=== PATIENT | male | born 1980 | race African-American/Black ===

== ENCOUNTER 2017-12-20 12:46 | Inpatient (IN) | payer OTHER ==
[2017-12-20 13:04] VITALS: BMI 23.4
--- NOTE | 2017-12-20 15:09 | HP ---
CIWA Score - CIWA Score Nausea/Vomitin-Mild Nausea/No Vomiting Muscle Tremors: 4-Moderate,w/Arms Extend Anxiety: 4-Mod. Anxious/Guarded Agitation: 4-Moderately Restless Paroxysmal Sweats: 1-Minimal Palms Moist Orientation: 0-Oriented Tacttile Disturbances: 1-Very Mild Itch/Numbness Auditory Disturbances: 0-None Visual Disturbances: 0-None Headache: 1-Very Mild CIWA-Ar Total Score: 16 Admission ROS S - HPI Chief Complaint: alcohol withdrawal sx longest sobriety 4 1/2 years Allergies/Adverse Reactions: Allergies Allergy/AdvReac Type Severity Reaction Status Date / Time penicillinase Allergy Severe Swelling Verified 12/20/17 13:51 shrimp Allergy Severe Swelling Verified 12/20/17 13:51 History of Present Illness: 37 years old male with long history of alcohol nicotine dependence has asthma depression is admitted to detox Exam Limitations: No Limitations - Ebola screening Have you traveled outside of the country in the last 21 days: No Have you had contact with anyone from an Ebola affected area: No Have you been sick,other than usual withdrawal symptoms: No Do you have a fever: No - Review of Systems Constitutional: Loss of Appetite, Changes in sleep, Unintentional Wgt. Loss, Unexplained wgt Loss EENT: reports: No Symptoms Reported Respiratory: reports: SOB with Exertion, Productive cough Cardiac: reports: No Symptoms Reported GI: reports: Nausea, Poor Appetite, Poor Fluid Intake, Abdominal cramping : reports: No Symptoms Reported Musculoskeletal: reports: No Symptoms Reported Integumentary: reports: No Symptoms Reported Neuro: reports: Tremors Endocrine: reports: No Symptoms Reported Hematology: reports: No Symptoms Reported Psychiatric: reports: Judgement Intact, Orientated x3, Anxious, Depressed Other Systems: Reviewed and Negative Patient History - Patient Medical History Hx Anemia: No Hx Asthma: Yes (ON ALBUTEROL AND SYMBICORT) Hx Chronic Obstructive Pulmonary Disease (COPD): No Hx Cancer: No Hx Cardiac Disorders: No Hx Congestive Heart Failure: No Hx Hypertension: No Hx Hypercholesterolemia: No Hx Pacemaker: No HX Cerebrovascular Accident: No Hx Seizures: No Hx Dementia: No Hx Diabetes: No (HX OF TYPE 2 DM D/C OF METFORMIN IN 2017 AFTER 20 LBS WEIGHT LOSS) Hx Gastrointestinal Disorders: No Hx Liver Disease: No Hx Genitourinary Disorders: No Hx Sexually Transmitted Disorders: No Hx Renal Disease (ESRD): No Hx Thyroid Disease: No Hx Human Immunodeficiency Virus (HIV): No (LAST 09/03/15 NEGATIVE) Hx Hepatitis C: No Hx Depression: Yes (NO MEDICATON) Hx Suicide Attempt: No Hx Bipolar Disorder: No Hx Schizophrenia: No - Patient Surgical History Past Surgical History: Yes Hx Neurologic Surgery: No Hx Cataract Extraction: No Hx Cardiac Surgery: No Hx Lung Surgery: No Hx Breast Surgery: No Hx Breast Biopsy: No Hx Abdominal Surgery: No Hx Appendectomy: No Hx Cholecystectomy: No Hx Genitourinary Surgery: No Hx Orthopedic Surgery: Yes (R HIP REPLACEMENT IN 08/20, L HIP REPLACEMENT 2016) Anesthesia Reaction: No - PPD History Previous Implant?: Yes Documented Results: Negative w/proof Implanted On Prior [facility] Admission?: Yes Date: 09/30/15 Results: NEG PPD to be Administered?: Yes - Smoking Cessation Smoking history: Current every day smoker Have you smoked in the past 12 months: Yes Aproximately how many cigarettes per day: 10 Cigars Per Day: 0 Hx Chewing Tobacco Use: No Initiated information on smoking cessation: Yes 'Breaking Loose' booklet given: 12/20/17 - Substance & Tx. History Hx Alcohol Use: Yes Hx Substance Use: No Substance Use Type: Alcohol Hx Substance Use Treatment: Yes (2015 [facility]) - Substances Abused Alcohol Route: Oral Frequency: Daily Amount used: (3) 24 ounces beer ,1 pint on weekends erika Age of first use: 21 Date of Last Use: 12/19/17 Family Disease History - Family Disease History Family Disease History: Diabetes: Sister, Respiratory: Sister, Other: Father ( ALCOHOL,), Mother (ALCOHOL), Brother (DSA), Sister Admission Physical Exam [facility] - Vital Signs Vital Signs: Vital Signs - 24 hr 12/20/17 12/20/17 13:02 14:40 Temperature 98 F 98 F Pulse Rate 96 H 96 H Respiratory 20 20 Rate Blood Pressure 139/74 139/74 - Physical General Appearance: Yes: Nourished, Appropriately Dressed, Mild Distress, Alcohol on Breath, Tremorous, Irritable, Sweating, Anxious HEENTM: Yes: Hearing grossly Normal, Normocephalic, Normal Voice Respiratory: Yes: Chest Non-Tender, No Respiratory Distress, No Accessory Muscle Use, Wheezing, Expiration Neck: Yes: Supple, Trachea in good position Breast: Yes: Breasts Symetrical, No Discharge Cardiology: Yes: Regular Rhythm, S1, S2, Tachycardia Abdominal: Yes: Normal Bowel Sounds, Non Tender, Flat, Soft Genitourinary: Yes: Within Normal Limits Back: Yes: Normal Inspection Musculoskeletal: Yes: full range of Motion, Gait Steady Extremities: Yes: Normal Inspection, Normal Range of Motion, Tremors Neurological: Yes: Fully Oriented, Alert, Motor Strength 5/5, Normal Response, Depressed Affect Integumentary: Yes: Warm Lymphatic: Yes: Within Normal Limits - Diagnostic (1) Alcohol dependence with uncomplicated withdrawal Current Visit: Yes Status: Acute (2) Depression Current Visit: Yes Status: Suspected Qualifiers: Depression Type: dysthymia Qualified Code(s): F34.1 - Dysthymic disorder (3) Asthma Current Visit: Yes Status: Chronic Qualifiers: Asthma severity: mild Asthma persistence: intermittent Asthma complication type: with status asthmaticus Qualified Code(s): J45.22 - Mild intermittent asthma with status asthmaticus (4) History of total right hip replacement Current Visit: Yes Status: Chronic Comment: right hip 2016 left hip 2017 (5) Nicotine dependence Current Visit: Yes Status: Acute Qualifiers: Nicotine product type: cigarettes Substance use status: in withdrawal Qualified Code(s): F17.213 - Nicotine dependence, cigarettes, with withdrawal Cleared for Admission [facility] - Detox or Rehab [facility] Level of Care: Medically Managed Detox Regimen/Protocol: Librium [facility] Breath Alcohol Content Breath Alcohol Content: 0.018 Urine Drug Screen - Results Drug Screen Negative: Yes
[2017-12-20] MEDS ORDERED: guaiFENesin/D-METHORPHAN HB 10 ML UNIT-DOSE CUPS PO PRN (15:10)
[2017-12-20] MEDS ORDERED: P-EPHED 60MG/TRIPROLIDI 2.5MG TABLET PO PRN (15:10)
[2017-12-20] MEDS ORDERED: LOPERAMIDE HCL 2 MG CAPSULE PO PRN (15:10)
[2017-12-20] MEDS ORDERED: MAGNESIUM HYDROX 2400MG/30ML ORAL SUSPENSION 30 ML CUP PO PRN (15:10)
[2017-12-20] MEDS ORDERED: MAGNESIUM CITRATE 300 ML BOTTLE PO PRN (15:10)
[2017-12-20] MEDS ORDERED: NICOTINE POLACRILEX 2 MG GUM BUC PRN (15:10)
[2017-12-20] MEDS ORDERED: MAG HYDROX/AL HYDROX/SIMETH 30 ML UNIT-DOSE CUP PO PRN (15:10)
[2017-12-20] MEDS ORDERED: MENTHOL/PHENOL 1 EACH UD MM PRN (15:10)
[2017-12-20] MEDS ORDERED: ACETAMINOPHEN 325 MG TABLET (FP) PO PRN (15:10)
[2017-12-20] MEDS ORDERED: chlordiazePOXIDE HCL 25 MG CAPSULE PO PRN (15:10)
[2017-12-20] MEDS ORDERED: IBUPROFEN 400 MG TABLET (FP) PO PRN (15:10)
[2017-12-20] MEDS ORDERED: predniSONE 20 MG TABLET (UD) PO ONE (15:40)
[2017-12-20] MEDS: chlordiazePOXIDE HCL 25 MG CAPSULE PO SCH ×2 (17:26→22:34)
[2017-12-20] MEDS: NICOTINE 14 MG/24 HOURS TOPICAL PATCH TD SCH (17:28)
[2017-12-20] MEDS: ALBUTEROL SO4 8 GM HFA INHALER IH PRN (17:42)
[2017-12-20] MEDS ORDERED: MELATONIN 5 MG TABLETS PO PRN (22:00)
[2017-12-20] MEDS: THIAMINE HCL 100 MG TABLET (FP) PO SCH (22:34)
[2017-12-20] MEDS: ALBUTEROL SO4 0.083% IH SOL 2.5 MG/3 ML VIAL.NEB. NEB PRN (23:14)
[2017-12-21] MEDS: chlordiazePOXIDE HCL 25 MG CAPSULE PO SCH ×4 (05:10→22:23)
[2017-12-21] MEDS: ALBUTEROL SO4 8 GM HFA INHALER IH PRN ×3 (05:12→22:24)
[2017-12-21 09:54] LABS: HEMATOCRIT 47.5 % (35.4-49); HEMOGLOBIN 15.9 GM/dL (11.7-16.9); MCH 30.5 pg (25.7-33.7); MCHC 33.5 g/dl (32.0-35.9); MEAN CELL VOLUME 91.3 fl (80-96); MEAN PLT VOLUME 10.3 fl (7.5-11.1); PLATELET COUNT 318 K/MM3 (134-434); RDW 13.9 % (11.9-15.9); WHITE BLOOD COUNT 10.6 K/mm3 (4.0-10.0)
[2017-12-21] MEDS ORDERED: predniSONE 10 MG TABLET (UD) PO ONE (10:00)
[2017-12-21] MEDS: PRENATAL VITAMINS W/ FOLIC ACID TABLET (FP) PO SCH (10:03)
[2017-12-21] MEDS: NICOTINE 14 MG/24 HOURS TOPICAL PATCH TD SCH (10:04)
[2017-12-21 10:52] LABS: ALBUMIN 4.4 g/dl (3.4-5.0); ANION GAP 9 (8-16); BLOOD UREA NITROGEN 10 mg/dL (7-18); CALCIUM 10.1 mg/dL (8.5-10.1); CHLORIDE 106 mmol/L (98-107); CO2 22 mmol/L (21-32); GLUCOSE,RANDOM 98 mg/dL (74-106); SGOT/AST 28 U/L (15-37); SGPT/ALT 34 U/L (12-78); SODIUM 137 mmol/L (136-145)
[2017-12-21 10:54] LABS: ALK PHOS 104 U/L (45-117); BILIRUBIN,TOTAL 0.4 mg/dL (0.2-1.0); TOT PROT 8.4 g/dl (6.4-8.2)
--- NOTE | 2017-12-21 11:31 | EKG ---
Test Reason : Blood Pressure : / mmHG Vent. Rate : 088 BPM Atrial Rate : 088 BPM P-R Int : 152 ms QRS Dur : 080 ms QT Int : 358 ms P-R-T Axes : 075 083 065 degrees QTc Int : 433 ms NORMAL SINUS RHYTHM NORMAL ECG Confirmed by MD JOJO, YEIMI ([id number]) on 12/21/2017 11:31:08 AM Referred By: Confirmed By:YEIMI URIBE MD
--- NOTE | 2017-12-21 12:06 | PN ---
[facility] CIWA - CIWA Score Nausea/Vomitin-Mild Nausea/No Vomiting Muscle Tremors: 4-Moderate,w/Arms Extend Anxiety: 4-Mod. Anxious/Guarded Agitation: 4-Moderately Restless Paroxysmal Sweats: 1-Minimal Palms Moist Orientation: 0-Oriented Tacttile Disturbances: 0-None Auditory Disturbances: 0-None Visual Disturbances: 0-None Headache: 0-None Present CIWA-Ar Total Score: 14 S Progress Note (SOAP) Subjective: SWEAT TREMOR RESTLESSNESS IRRITABLE Objective: 12/21/17 12:05 Vital Signs Temperature 97.7 F 12/21/17 09:14 Pulse Rate 80 12/21/17 09:14 Respiratory Rate 18 12/21/17 09:14 Blood Pressure 120/80 12/21/17 09:14 O2 Sat by Pulse Oximetry (%) Laboratory Last Values WBC 10.6 K/mm3 (4.0-10.0) H 12/21/17 06:00 RBC 5.20 M/mm3 (4.00-5.60) 12/21/17 06:00 Hgb 15.9 GM/dL (11.7-16.9) 12/21/17 06:00 Hct 47.5 % (35.4-49) 12/21/17 06:00 MCV 91.3 fl (80-96) 12/21/17 06:00 MCH 30.5 pg (25.7-33.7) 12/21/17 06:00 MCHC 33.5 g/dl (32.0-35.9) 12/21/17 06:00 RDW 13.9 % (11.9-15.9) 12/21/17 06:00 Plt Count 318 K/MM3 (134-434) D 12/21/17 06:00 MPV 10.3 fl (7.5-11.1) 12/21/17 06:00 Sodium 137 mmol/L (136-145) 12/21/17 06:00 Potassium 5.0 mmol/L (3.5-5.1) D 12/21/17 06:00 Chloride 106 mmol/L (98-107) 12/21/17 06:00 Carbon Dioxide 22 mmol/L (21-32) D 12/21/17 06:00 Anion Gap 9 (8-16) 12/21/17 06:00 BUN 10 mg/dL (7-18) 12/21/17 06:00 Creatinine 1.0 mg/dL (0.7-1.3) 12/21/17 06:00 Creat Clearance w eGFR > 60 (>60) 12/21/17 06:00 POC Glucometer 107 UNITS (80-120) 12/20/17 14:45 Random Glucose 98 mg/dL (74-106) 12/21/17 06:00 Calcium 10.1 mg/dL (8.5-10.1) 12/21/17 06:00 Total Bilirubin 0.4 mg/dL (0.2-1.0) 12/21/17 06:00 AST 28 U/L (15-37) D 12/21/17 06:00 ALT 34 U/L (12-78) 12/21/17 06:00 Alkaline Phosphatase 104 U/L (45-117) 12/21/17 06:00 Total Protein 8.4 g/dl (6.4-8.2) H 12/21/17 06:00 Albumin 4.4 g/dl (3.4-5.0) 12/21/17 06:00 LAB NOTED Assessment: 12/21/17 12:06 WITHDRAWAL SX Plan: CONTINUE DETOX
[2017-12-21] MEDS ORDERED: hydrOXYzine PAMOATE 50 MG CAPSULE (FP) PO PRN (13:53)
--- NOTE | 2017-12-21 13:54 | CONSULT ---
[facility] Psychiatric Consult - Data Date of interview: 12/21/17 Admission source: [facility] Identifying data: Patient is a 37 year old male, father of five, unemployed, homless, and pending SSI. This is one of multiple admissions for patient. Pt. admitted to for alcohol dependence. Substance Abuse History: Smoking Cessation. Smoking history: Current every day smoker. Have you smoked in the past 12 months: Yes. Aproximately how many cigarettes per day: 10. Cigars Per Day: 0. Hx Chewing Tobacco Use: No. Initiated information on smoking cessation: Yes. 'Breaking Loose' booklet given : 12/20/17. - Substance & Tx. History. Hx Alcohol Use: Yes. Hx Substance Use : No. Substance Use Type: Alcohol. Hx Substance Use Treatment: Yes (2015 [facility]). - Substances Abused. Alcohol. Route: Oral. Frequency: Daily. Amount used: (3) 24 ounces beer ,1 pint on weekends erika. Age of first use: 21. Date of Last Use: 12/19/17 Medical History: Asthma, Type II diabetes, (R HIP REPLACEMENT IN 08/20, L HIP REPLACEMENT 2017 Psychiatric History: Patient denies h/o psychiatric hospitalization, outpatient care and suicide attempt. Patient reports poor sleep and h/o learning disability. Physical/Sexual Abuse/Trauma History: Denies. Mental Status Exam - Mental Status Exam Alert and Oriented to: Time, Place, Person Cognitive Function: Good Patient Appearance: Well Groomed Mood: Hopeful, Euthymic Affect: Mood Congruent Patient Behavior: Appropriate, Cooperative Speech Pattern: Appropriate Voice Loudness: Normal Thought Process: Intact, Goal Oriented Thought Disorder: Not Present Hallucinations: Denies Suicidal Ideation: Denies Homicidal Ideation: Denies Insight/Judgement: Poor Sleep: Poorly Appetite: Fair Muscle strength/Tone: Normal Gait/Station: Normal Psychiatric Findings - Problem List ([place] 1, 2,3) (1) Alcohol dependence with uncomplicated withdrawal Current Visit: Yes Status: Acute (2) Nicotine dependence Current Visit: Yes Status: Acute Qualifiers: Nicotine product type: cigarettes Substance use status: in withdrawal Qualified Code(s): F17.213 - Nicotine dependence, cigarettes, with withdrawal (3) History of total right hip replacement Current Visit: Yes Status: Chronic Comment: right hip 2016 left hip 2016 (4) Alcohol-induced mood disorder Current Visit: Yes Status: Acute (5) Substance-induced sleep disorder Current Visit: Yes Status: Acute - Initial Treatment Plan Initial Treatment Plan: Psychoeducation provided. Detoxification in progress. Will increase Melatonin to 8mg and add vistaril 50mg q6h for anxiety. Benefits and side effects discussed. Verbal consent given.
[2017-12-21] MEDS ORDERED: MELATONIN 3 MG, MELATONIN 5 MG PO PRN (13:57)
[2017-12-21] MEDS ORDERED: MELATONIN 5 MG TABLETS PO PRN (22:00)
[2017-12-21] MEDS: THIAMINE HCL 100 MG TABLET (FP) PO SCH (22:23)
[2017-12-22] MEDS: chlordiazePOXIDE HCL 25 MG CAPSULE PO SCH ×2 (05:12→10:30)
[2017-12-22] MEDS: ALBUTEROL SO4 8 GM HFA INHALER IH PRN ×3 (09:02→20:03)
[2017-12-22] MEDS: ALBUTEROL SO4 0.083% IH SOL 2.5 MG/3 ML VIAL.NEB. NEB PRN (09:03)
[2017-12-22] MEDS ORDERED: predniSONE 20 MG TABLET (UD) PO ONE (10:00)
[2017-12-22] MEDS: PRENATAL VITAMINS W/ FOLIC ACID TABLET (FP) PO SCH (10:30)
[2017-12-22] MEDS: NICOTINE 14 MG/24 HOURS TOPICAL PATCH TD SCH (10:30)
--- NOTE | 2017-12-22 10:55 | PN ---
S CIWA - CIWA Score Nausea/Vomitin-Mild Nausea/No Vomiting Muscle Tremors: 4-Moderate,w/Arms Extend Anxiety: 3 Agitation: 3 Paroxysmal Sweats: 1-Minimal Palms Moist Orientation: 0-Oriented Tacttile Disturbances: 0-None Auditory Disturbances: 0-None Visual Disturbances: 0-None Headache: 0-None Present CIWA-Ar Total Score: 12 [facility] Progress Note (SOAP) Subjective: sweat tremor anxiety restlessness wheezing Objective: 12/22/17 11:00 Vital Signs Temperature 97.7 F 12/22/17 09:15 Pulse Rate 68 12/22/17 09:15 Respiratory Rate 18 12/22/17 09:15 Blood Pressure 114/65 12/22/17 09:15 O2 Sat by Pulse Oximetry (%) Laboratory Last Values WBC 10.6 K/mm3 (4.0-10.0) H 12/21/17 06:00 RBC 5.20 M/mm3 (4.00-5.60) 12/21/17 06:00 Hgb 15.9 GM/dL (11.7-16.9) 12/21/17 06:00 Hct 47.5 % (35.4-49) 12/21/17 06:00 MCV 91.3 fl (80-96) 12/21/17 06:00 MCH 30.5 pg (25.7-33.7) 12/21/17 06:00 MCHC 33.5 g/dl (32.0-35.9) 12/21/17 06:00 RDW 13.9 % (11.9-15.9) 12/21/17 06:00 Plt Count 318 K/MM3 (134-434) D 12/21/17 06:00 MPV 10.3 fl (7.5-11.1) 12/21/17 06:00 Sodium 137 mmol/L (136-145) 12/21/17 06:00 Potassium 5.0 mmol/L (3.5-5.1) D 12/21/17 06:00 Chloride 106 mmol/L (98-107) 12/21/17 06:00 Carbon Dioxide 22 mmol/L (21-32) D 12/21/17 06:00 Anion Gap 9 (8-16) 12/21/17 06:00 BUN 10 mg/dL (7-18) 12/21/17 06:00 Creatinine 1.0 mg/dL (0.7-1.3) 12/21/17 06:00 Creat Clearance w eGFR > 60 (>60) 12/21/17 06:00 POC Glucometer 107 UNITS (80-120) 12/22/17 05:11 Random Glucose 98 mg/dL (74-106) 12/21/17 06:00 Calcium 10.1 mg/dL (8.5-10.1) 12/21/17 06:00 Total Bilirubin 0.4 mg/dL (0.2-1.0) 12/21/17 06:00 AST 28 U/L (15-37) D 12/21/17 06:00 ALT 34 U/L (12-78) 12/21/17 06:00 Alkaline Phosphatase 104 U/L (45-117) 12/21/17 06:00 Total Protein 8.4 g/dl (6.4-8.2) H 12/21/17 06:00 Albumin 4.4 g/dl (3.4-5.0) 12/21/17 06:00 RPR Titer Nonreactive (NONREACTIVE) 12/21/17 06:00 lab noted Assessment: 12/22/17 11:01 withdrawal sx asthma Plan: continue detox
[2017-12-22 14:33] LABS: URINE APPEARANCE CLEAR; URINE BILIRUBIN NEGATIVE (<2.0 mg/dL); URINE COLOR YELLOW; URINE GLUCOSE (UA) NEGATIVE (NEGATIVE); URINE KETONE NEGATIVE (NEGATIVE); URINE LEUK ESTERASE NEGATIVE (NEGATIVE); URINE NITRITE NEGATIVE (NEGATIVE); URINE PROTEIN NEGATIVE (NEGATIVE); URINE UROBILINOGEN NEGATIVE mg/dL (0.2-1.0)
[2017-12-22 15:00] LABS: EPI CELLS RARE /HPF (FEW); URINE MUCUS RARE
[2017-12-22] MEDS: chlordiazePOXIDE 5 MG CAPSULE PO SCH ×2 (17:31→22:13)
[2017-12-22] MEDS: THIAMINE HCL 100 MG TABLET (FP) PO SCH (22:13)
[2017-12-23] MEDS: chlordiazePOXIDE 5 MG CAPSULE PO SCH ×2 (05:52→10:06)
[2017-12-23] MEDS: ALBUTEROL SO4 8 GM HFA INHALER IH PRN ×2 (05:54→10:10)
--- NOTE | 2017-12-23 08:47 | PN ---
[facility] Progress Note (SOAP) Subjective: FEELING BETTER NO TREMOR LESS SWEAT DENIES GI DISTRESS SOCIAL WITH PEERS IN DAY ROOM DISCUSS AFTERCARE Objective: 12/23/17 08:46 Vital Signs Temperature 97 F L 12/23/17 07:54 Pulse Rate 66 12/23/17 07:54 Respiratory Rate 18 12/23/17 07:54 Blood Pressure 128/95 12/23/17 07:54 O2 Sat by Pulse Oximetry (%) Laboratory Last Values WBC 10.6 K/mm3 (4.0-10.0) H 12/21/17 06:00 RBC 5.20 M/mm3 (4.00-5.60) 12/21/17 06:00 Hgb 15.9 GM/dL (11.7-16.9) 12/21/17 06:00 Hct 47.5 % (35.4-49) 12/21/17 06:00 MCV 91.3 fl (80-96) 12/21/17 06:00 MCH 30.5 pg (25.7-33.7) 12/21/17 06:00 MCHC 33.5 g/dl (32.0-35.9) 12/21/17 06:00 RDW 13.9 % (11.9-15.9) 12/21/17 06:00 Plt Count 318 K/MM3 (134-434) D 12/21/17 06:00 MPV 10.3 fl (7.5-11.1) 12/21/17 06:00 Sodium 137 mmol/L (136-145) 12/21/17 06:00 Potassium 5.0 mmol/L (3.5-5.1) D 12/21/17 06:00 Chloride 106 mmol/L (98-107) 12/21/17 06:00 Carbon Dioxide 22 mmol/L (21-32) D 12/21/17 06:00 Anion Gap 9 (8-16) 12/21/17 06:00 BUN 10 mg/dL (7-18) 12/21/17 06:00 Creatinine 1.0 mg/dL (0.7-1.3) 12/21/17 06:00 Creat Clearance w eGFR > 60 (>60) 12/21/17 06:00 POC Glucometer 107 UNITS (80-120) 12/22/17 05:11 Random Glucose 98 mg/dL (74-106) 12/21/17 06:00 Calcium 10.1 mg/dL (8.5-10.1) 12/21/17 06:00 Total Bilirubin 0.4 mg/dL (0.2-1.0) 12/21/17 06:00 AST 28 U/L (15-37) D 12/21/17 06:00 ALT 34 U/L (12-78) 12/21/17 06:00 Alkaline Phosphatase 104 U/L (45-117) 12/21/17 06:00 Total Protein 8.4 g/dl (6.4-8.2) H 12/21/17 06:00 Albumin 4.4 g/dl (3.4-5.0) 12/21/17 06:00 Urine Color Yellow 12/22/17 11:00 Urine Appearance Clear 12/22/17 11:00 Urine pH 5.0 (5.0-8.0) 12/22/17 11:00 Ur Specific [place] 1.025 (1.001-1.035) 12/22/17 11:00 Urine Protein Negative (NEGATIVE) 12/22/17 11:00 Urine Glucose (UA) Negative (NEGATIVE) 12/22/17 11:00 Urine Ketones Negative (NEGATIVE) 12/22/17 11:00 Urine Blood 1+ (NEGATIVE) H 12/22/17 11:00 Urine Nitrite Negative (NEGATIVE) 12/22/17 11:00 Urine Bilirubin Negative (<2.0 mg/dL) 12/22/17 11:00 Urine Urobilinogen Negative mg/dL (0.2-1.0) 12/22/17 11:00 Ur Leukocyte Esterase Negative (NEGATIVE) 12/22/17 11:00 Urine WBC (Auto) 2 /hpf (3-5) 12/22/17 11:00 Urine RBC (Auto) 5 /hpf (0-3) 12/22/17 11:00 Ur Epithelial Cells Rare /HPF (FEW) 12/22/17 11:00 Urine Mucus Rare 12/22/17 11:00 RPR Titer Nonreactive (NONREACTIVE) 12/21/17 06:00 LAB NOTED Assessment: 12/23/17 08:46 MILD WITHDRAWAL SX Plan: MEDICALLY SUPERVISED DETOX
[2017-12-23] MEDS ORDERED: predniSONE 10 MG TABLET (UD) PO ONE (10:00)
[2017-12-23] MEDS: NICOTINE 14 MG/24 HOURS TOPICAL PATCH TD SCH (10:06)
[2017-12-23] MEDS: PRENATAL VITAMINS W/ FOLIC ACID TABLET (FP) PO SCH (10:06)
[2017-12-23 10:17] VITALS: BP 132/77; PULSE 63; TEMP 97.2
--- NOTE | 2017-12-23 10:24 | DS ---
[facility] Detox Discharge Summary Admission Date: 12/20/17 Discharge Date: 12/23/17 - History Present History: Alcohol Dependence Additional Comments: 37 years old male admitted on 12/20/17 for alcohol withdrawal sx patient preferred recovery today at [facility] stated no alcohol withdrawal sx feeling ready to begin [facility] alert oriented x 3 no acute distress - Physical Exam Results Vital Signs: Vital Signs Temperature 97.2 F L 12/23/17 10:16 Pulse Rate 63 12/23/17 10:16 Respiratory Rate 16 12/23/17 10:16 Blood Pressure 132/77 12/23/17 10:16 O2 Sat by Pulse Oximetry (%) Pertinent Admission Physical Exam Findings: alcohol withdrawal sx Vital Signs Temperature 97.2 F L 12/23/17 10:16 Pulse Rate 63 12/23/17 10:16 Respiratory Rate 16 12/23/17 10:16 Blood Pressure 132/77 12/23/17 10:16 O2 Sat by Pulse Oximetry (%) Laboratory Last Values WBC 10.6 K/mm3 (4.0-10.0) H 12/21/17 06:00 RBC 5.20 M/mm3 (4.00-5.60) 12/21/17 06:00 Hgb 15.9 GM/dL (11.7-16.9) 12/21/17 06:00 Hct 47.5 % (35.4-49) 12/21/17 06:00 MCV 91.3 fl (80-96) 12/21/17 06:00 MCH 30.5 pg (25.7-33.7) 12/21/17 06:00 MCHC 33.5 g/dl (32.0-35.9) 12/21/17 06:00 RDW 13.9 % (11.9-15.9) 12/21/17 06:00 Plt Count 318 K/MM3 (134-434) D 12/21/17 06:00 MPV 10.3 fl (7.5-11.1) 12/21/17 06:00 Sodium 137 mmol/L (136-145) 12/21/17 06:00 Potassium 5.0 mmol/L (3.5-5.1) D 12/21/17 06:00 Chloride 106 mmol/L (98-107) 12/21/17 06:00 Carbon Dioxide 22 mmol/L (21-32) D 12/21/17 06:00 Anion Gap 9 (8-16) 12/21/17 06:00 BUN 10 mg/dL (7-18) 12/21/17 06:00 Creatinine 1.0 mg/dL (0.7-1.3) 12/21/17 06:00 Creat Clearance w eGFR > 60 (>60) 12/21/17 06:00 POC Glucometer 107 UNITS (80-120) 12/22/17 05:11 Random Glucose 98 mg/dL (74-106) 12/21/17 06:00 Calcium 10.1 mg/dL (8.5-10.1) 12/21/17 06:00 Total Bilirubin 0.4 mg/dL (0.2-1.0) 12/21/17 06:00 AST 28 U/L (15-37) D 12/21/17 06:00 ALT 34 U/L (12-78) 12/21/17 06:00 Alkaline Phosphatase 104 U/L (45-117) 12/21/17 06:00 Total Protein 8.4 g/dl (6.4-8.2) H 12/21/17 06:00 Albumin 4.4 g/dl (3.4-5.0) 12/21/17 06:00 Urine Color Yellow 12/22/17 11:00 Urine Appearance Clear 12/22/17 11:00 Urine pH 5.0 (5.0-8.0) 12/22/17 11:00 Ur Specific [place] 1.025 (1.001-1.035) 12/22/17 11:00 Urine Protein Negative (NEGATIVE) 12/22/17 11:00 Urine Glucose (UA) Negative (NEGATIVE) 12/22/17 11:00 Urine Ketones Negative (NEGATIVE) 12/22/17 11:00 Urine Blood 1+ (NEGATIVE) H 12/22/17 11:00 Urine Nitrite Negative (NEGATIVE) 12/22/17 11:00 Urine Bilirubin Negative (<2.0 mg/dL) 12/22/17 11:00 Urine Urobilinogen Negative mg/dL (0.2-1.0) 12/22/17 11:00 Ur Leukocyte Esterase Negative (NEGATIVE) 12/22/17 11:00 Urine WBC (Auto) 2 /hpf (3-5) 12/22/17 11:00 Urine RBC (Auto) 5 /hpf (0-3) 12/22/17 11:00 Ur Epithelial Cells Rare /HPF (FEW) 12/22/17 11:00 Urine Mucus Rare 12/22/17 11:00 RPR Titer Nonreactive (NONREACTIVE) 12/21/17 06:00 lab noted - Treatment Hospital Course: Detox Protocol Followed, Detoxed Safely, Responded well, Discharged Condition Good, Rehab Referral Accepted Patient has Accepted a Rehab Referral to: [facility] - Medication Discharge Medications: Ambulatory Orders Prednisolone [Millipred] 20 mg PO DAILY 12/20/17 Albuterol Sulfate Inhaler - [Ventolin HFA Inhaler -] 1 - 2 inh PO QID #1 inhaler 12/22/17 Budesonide/Formeterol Fumarate [SYMBICORT 160/4.5mcg -] 2 inh PO DAILY #1 inhaler 12/22/17 - Diagnosis (1) Alcohol dependence with uncomplicated withdrawal Status: Acute (2) Depression Status: Suspected Qualifiers: Depression Type: dysthymia Qualified Code(s): F34.1 - Dysthymic disorder (3) Asthma Status: Chronic Qualifiers: Asthma severity: mild Asthma persistence: intermittent Asthma complication type: with status asthmaticus Qualified Code(s): J45.22 - Mild intermittent asthma with status asthmaticus (4) History of total right hip replacement Status: Chronic (5) Nicotine dependence Status: Acute Qualifiers: Nicotine product type: cigarettes Substance use status: in withdrawal Qualified Code(s): F17.213 - Nicotine dependence, cigarettes, with withdrawal - AMA Did Patient Leave Against Medical Advice: No
[2017-12-23] MEDS ORDERED: chlordiazePOXIDE HCL 10 MG CAPSULE PO SCH (17:00)
[2017-12-24] MEDS ORDERED: predniSONE 5 MG TABLET (UD) PO ONE (06:00)
== END 2017-12-23 12:20 | disposition other institution (70) | DRG 775 ==
LOC: YASAS 12:46 → Y6N 15:34
PROVIDERS: ADMIT Surgery; ATTEND Surgery
PROC: HZ2ZZZZ Detoxification Services for Substance Abuse Treatment (ICD-10-PCS; principal; 2017-12-20)
DX: F10.230 Alcohol dependence with withdrawal, uncomplicated (principal); F17.213 Nicotine dependence, cigarettes, with withdrawal; F34.1 Dysthymic disorder; F19.282 Other psychoactive substance dependence with psychoactive substance-induced sleep disorder; F10.24 Alcohol dependence with alcohol-induced mood disorder; J45.22 Mild intermittent asthma with status asthmaticus; Z96.643 Presence of artificial hip joint, bilateral; Z88.0 Allergy status to penicillin; Z91.013 Allergy to seafood
CPT/HCPCS: 36415; 80053; 81003; 81015; 82962; 85027; 86593; 93005; 93010; 94640

== ENCOUNTER 2017-12-23 12:30 | Inpatient (IN) | payer OTHER ==
[2017-12-23 12:57] VITALS: BMI 22.8
--- NOTE | 2017-12-23 13:38 | HP ---
[facility] Rehab Assess/Revision - Admission History Admitted to Rehab from: [facility] Date of Admission to Rehab: 12/23/17 - Vital signs Vital Signs: Vital Signs Period Temp Pulse Resp BP Sys/Hamilton Pulse Ox Last 24 Hr 98.2 F 73 18 124/84 - Findings Detox History & Physical reviewed: Yes Concur with findings: Yes Comments/Additional Findings: transferred from detox to rehab admission as per protocol Inpatient Rehab Admission - Rehab Admission Criteria Previous failed treatment: Yes Poor recovery environment: Yes Comorbidities: Yes Lacks judgement: No Patient is meeting Inpatient Rehab admission criteria:: Yes
[2017-12-23] MEDS ORDERED: MENTHOL/PHENOL 1 EACH UD MM PRN (13:39)
[2017-12-23] MEDS ORDERED: P-EPHED 60MG/TRIPROLIDI 2.5MG TABLET PO PRN (13:39)
[2017-12-23] MEDS ORDERED: ACETAMINOPHEN 325 MG TABLET (FP) PO PRN (13:39)
[2017-12-23] MEDS ORDERED: MAG HYDROX/AL HYDROX/SIMETH 30 ML UNIT-DOSE CUP PO PRN (13:39)
[2017-12-23] MEDS ORDERED: NICOTINE POLACRILEX 2 MG GUM BUC PRN (13:39)
[2017-12-23] MEDS ORDERED: MAGNESIUM CITRATE 300 ML BOTTLE PO PRN (13:39)
[2017-12-23] MEDS ORDERED: MAGNESIUM HYDROX 2400MG/30ML ORAL SUSPENSION 30 ML CUP PO PRN (13:39)
[2017-12-23] MEDS ORDERED: guaiFENesin/D-METHORPHAN HB 10 ML UNIT-DOSE CUPS PO PRN (13:39)
[2017-12-23] MEDS ORDERED: LOPERAMIDE HCL 2 MG CAPSULE PO PRN (13:39)
--- NOTE | 2017-12-23 17:35 | PN ---
[facility] Progress Note Note: Psychiatric nurse practitioner note: Pt. admitted to rehab on 5N. Will order Melatonin 8mg and vistaril 50mg q4h for anxiety. Verbal consent given.
[2017-12-23] MEDS: ALBUTEROL SO4 8 GM HFA INHALER IH PRN (20:20)
[2017-12-23] MEDS: THIAMINE HCL 100 MG TABLET (FP) PO SCH (21:47)
[2017-12-23] MEDS: MELATONIN 5 MG, MELATONIN 3 MG PO PRN (21:50)
[2017-12-23] MEDS: hydrOXYzine PAMOATE 50 MG CAPSULE (FP) PO PRN (21:51)
[2017-12-23] MEDS ORDERED: MELATONIN 5 MG TABLETS PO PRN ×2 (22:00)
[2017-12-24] MEDS: ALBUTEROL SO4 8 GM HFA INHALER IH PRN ×2 (07:00→21:42)
--- NOTE | 2017-12-24 09:02 | HP ---
Psychiatrist Admission - Data Date of interview: 12/24/17 Admission source: [facility] Identifying data: Patient is a 37 year old male, father of five, unemployed, homeless, and pending SSI. This is patient's first admission to rehab. Patient admitted for alcohol dependence. Medical History: Asthma, Type II diabetes, (R HIP REPLACEMENT IN 08/20, L HIP REPLACEMENT 2017 Psychiatric History: Patient denies h/o psychiatric hospitalization, outpatient care and suicide attempt. Patient reports poor sleep and h/o learning disability. States he was in special education classes during his years in school. Physical/Sexual Abuse/Trauma History: Denies. Vital Signs: Vital Signs - 24 hr 12/23/17 12/24/17 12/24/17 12:39 00:30 03:30 Temperature 98.2 F Pulse Rate 73 Respiratory 18 17 17 Rate Blood Pressure 124/84 12/24/17 07:18 Temperature 97.9 F Pulse Rate 64 Respiratory 18 Rate Blood Pressure 112/77 Allergies/Adverse Reactions: Allergies Allergy/AdvReac Type Severity Reaction Status Date / Time penicillinase Allergy Severe Swelling Verified 12/20/17 13:51 shrimp Allergy Severe Swelling Verified 12/20/17 13:51 Date of last physical exam: 12/20/17 Concur with the findings of this exam: Yes - Substance Abuse/Tx History Hx Alcohol Use: Yes (3-5 twenty four ounce beers daily, 2-3 pints on the weekends) Hx Substance Use: Yes (Marijuana- rarely, but has used in the past. ) Substance Use Type: Marijuana Hx Substance Use Treatment: Yes ([facility] [place] ) Mental Status Exam - Mental Status Exam Alert and Oriented to: Time, Place, Person Cognitive Function: Good Patient Appearance: Well Groomed Mood: Hopeful Affect: Appropriate, Mood Congruent Patient Behavior: Appropriate, Cooperative Speech Pattern: Clear, Appropriate Voice Loudness: Normal Thought Process: Goal Oriented Thought Disorder: Not Present Hallucinations: Denies Suicidal Ideation: Denies Homicidal Ideation: Denies Insight/Judgement: Poor Sleep: Fair Appetite: Fair Muscle strength/Tone: Normal Gait/Station: Normal Psychiatric Findings - Problem List ([place] 1, 2,3) (1) Alcohol dependence Current Visit: Yes Status: Acute (2) Alcohol-induced mood disorder Current Visit: Yes Status: Acute (3) History of total right hip replacement Current Visit: Yes Status: Chronic Comment: right hip 2016 left hip 2017 (4) Nicotine dependence Current Visit: Yes Status: Acute Qualifiers: Nicotine product type: cigarettes Substance use status: in withdrawal Qualified Code(s): F17.213 - Nicotine dependence, cigarettes, with withdrawal (5) Substance-induced sleep disorder Current Visit: Yes Status: Acute - Initial Treatment Plan Initial Treatment Plan: Psychoeducation provided. Rehablitation in progress. Melatonin 8 mg ordered for insomnia. Vistaril 50mg q4h ordered for anxiety. Benefits and side effects discussed. Verbal consent given.
[2017-12-24] MEDS: BUDESONIDE/FORMETEROL FUMARATE 160/4.5 mcg INHALER IH SCH (10:24)
[2017-12-24] MEDS: NICOTINE 14 MG/24 HOURS TOPICAL PATCH TD PRN (10:25)
[2017-12-24] MEDS: PRENATAL VITAMINS W/ FOLIC ACID TABLET (FP) PO SCH (10:26)
[2017-12-24] MEDS: THIAMINE HCL 100 MG TABLET (FP) PO SCH (21:41)
[2017-12-24] MEDS: MELATONIN 5 MG, MELATONIN 3 MG PO PRN (21:43)
[2017-12-25] MEDS: ALBUTEROL SO4 8 GM HFA INHALER IH PRN ×2 (07:00→21:40)
[2017-12-25] MEDS: PRENATAL VITAMINS W/ FOLIC ACID TABLET (FP) PO SCH (10:24)
[2017-12-25] MEDS: BUDESONIDE/FORMETEROL FUMARATE 160/4.5 mcg INHALER IH SCH (10:24)
[2017-12-25] MEDS: THIAMINE HCL 100 MG TABLET (FP) PO SCH (21:37)
[2017-12-26] MEDS: ALBUTEROL SO4 8 GM HFA INHALER IH PRN ×2 (06:52→21:36)
[2017-12-26] MEDS: PRENATAL VITAMINS W/ FOLIC ACID TABLET (FP) PO SCH (10:32)
[2017-12-26] MEDS: BUDESONIDE/FORMETEROL FUMARATE 160/4.5 mcg INHALER IH SCH (10:33)
[2017-12-26] MEDS: NICOTINE 14 MG/24 HOURS TOPICAL PATCH TD PRN (10:52)
[2017-12-26] MEDS: THIAMINE HCL 100 MG TABLET (FP) PO SCH (21:36)
[2017-12-26] MEDS: hydrOXYzine PAMOATE 50 MG CAPSULE (FP) PO PRN (21:36)
[2017-12-27] MEDS: ALBUTEROL SO4 8 GM HFA INHALER IH PRN ×2 (08:09→21:36)
[2017-12-27] MEDS: BUDESONIDE/FORMETEROL FUMARATE 160/4.5 mcg INHALER IH SCH (10:11)
[2017-12-27] MEDS: PRENATAL VITAMINS W/ FOLIC ACID TABLET (FP) PO SCH (10:11)
[2017-12-27] MEDS: THIAMINE HCL 100 MG TABLET (FP) PO SCH (21:34)
[2017-12-28] MEDS: hydrOXYzine PAMOATE 50 MG CAPSULE (FP) PO PRN ×2 (00:55→10:22)
[2017-12-28] MEDS: PRENATAL VITAMINS W/ FOLIC ACID TABLET (FP) PO SCH (10:21)
[2017-12-28] MEDS: BUDESONIDE/FORMETEROL FUMARATE 160/4.5 mcg INHALER IH SCH (10:21)
[2017-12-28] MEDS: NICOTINE 14 MG/24 HOURS TOPICAL PATCH TD PRN (10:37)
[2017-12-28] MEDS: IBUPROFEN 400 MG TABLET (FP) PO PRN (12:49)
[2017-12-28] MEDS: THIAMINE HCL 100 MG TABLET (FP) PO SCH (21:33)
[2017-12-28] MEDS: MELATONIN 5 MG TABLETS PO PRN (21:34)
[2017-12-28] MEDS: ALBUTEROL SO4 8 GM HFA INHALER IH PRN (21:36)
[2017-12-29] MEDS: BUDESONIDE/FORMETEROL FUMARATE 160/4.5 mcg INHALER IH SCH (10:18)
[2017-12-29] MEDS: PRENATAL VITAMINS W/ FOLIC ACID TABLET (FP) PO SCH (10:18)
[2017-12-29] MEDS: IBUPROFEN 400 MG TABLET (FP) PO PRN (18:05)
[2017-12-29] MEDS: THIAMINE HCL 100 MG TABLET (FP) PO SCH (21:44)
[2017-12-29] MEDS: MELATONIN 5 MG TABLETS PO PRN (21:44)
[2017-12-29] MEDS: ALBUTEROL SO4 8 GM HFA INHALER IH PRN (21:45)
[2017-12-29] MEDS: hydrOXYzine PAMOATE 50 MG CAPSULE (FP) PO PRN (21:53)
[2017-12-30 07:17] VITALS: TEMP 97.8
[2017-12-30] MEDS: ALBUTEROL SO4 8 GM HFA INHALER IH PRN ×2 (08:01→09:38)
[2017-12-30] MEDS: PRENATAL VITAMINS W/ FOLIC ACID TABLET (FP) PO SCH (10:21)
[2017-12-30] MEDS: BUDESONIDE/FORMETEROL FUMARATE 160/4.5 mcg INHALER IH SCH (10:21)
[2017-12-30] MEDS: NICOTINE 14 MG/24 HOURS TOPICAL PATCH TD PRN (10:23)
[2017-12-30] MEDS: THIAMINE HCL 100 MG TABLET (FP) PO SCH (21:47)
[2017-12-30] MEDS: MELATONIN 5 MG TABLETS PO PRN (21:48)
[2017-12-31 07:23] VITALS: BP 112/78; PULSE 69
[2017-12-31] MEDS: ALBUTEROL SO4 8 GM HFA INHALER IH PRN (08:05)
[2017-12-31] MEDS: BUDESONIDE/FORMETEROL FUMARATE 160/4.5 mcg INHALER IH SCH (09:49)
[2017-12-31] MEDS: PRENATAL VITAMINS W/ FOLIC ACID TABLET (FP) PO SCH (09:50)
--- NOTE | 2017-12-31 10:03 | PN ---
Psychiatric Progress Note Vital Signs: Vital Signs Period Temp Pulse Resp BP Sys/Hamilton Pulse Ox Last 24 Hr 97.8 F 69 18-18 112/78 Date of Session: 12/30/17 Chief Complaint:: "Discharge" HPI: Patient admitted to for alcohol dependence. ROS: Asthma, Type II diabetes, (R HIP REPLACEMENT IN 08/20, L HIP REPLACEMENT 2017 Current Medications: Active Medications Generic Name Dose Route Start Last Admin Trade Name Freq PRN Reason Stop Dose Admin Acetaminophen 650 mg 12/23/17 13:39 12/30/17 13:10 Tylenol - PO 650 mg Q4H PRN Administration FEVER Al Hydroxide/Mg Hydroxide 30 ml 12/23/17 13:39 Mylanta Oral Suspension - PO Q6H PRN DYSPEPSIA Albuterol Sulfate 2 puff 12/23/17 13:40 12/31/17 08:05 Ventolin Hfa Inhaler - IH 2 puff QID PRN Administration ASTHMA Budesonide/Formoterol Fumarate 2 puff 12/24/17 10:00 12/31/17 09:49 Symbicort 160/4.5mcg - IH 2 puff DAILY TE Administration Eucalyptus/Menthol/Phenol/Sorbitol 1 each 12/23/17 13:39 Cepastat Lozenge - MM Q4H PRN SORE THROAT Guaifenesin 10 ml 12/23/17 13:39 Robitussin Dm - PO Q6H PRN COUGH Hydroxyzine Pamoate 50 mg 12/23/17 17:33 12/29/17 21:53 Vistaril - PO 50 mg Q4H PRN Administration ANXIETY Ibuprofen 400 mg 12/23/17 13:39 12/29/17 18:05 Motrin - PO 400 mg Q6H PRN Administration Pain Level 4-6 Loperamide HCl 4 mg 12/23/17 13:39 Imodium - PO Q6H PRN DIARRHEA Magnesium Citrate 300 ml 12/23/17 13:39 Citroma - PO Q48H PRN CONSTIPATION Magnesium Hydroxide 30 ml 12/23/17 13:39 Milk Of Magnesia - PO DAILY PRN CONSTIPATION Melatonin 5 mg 12/28/17 00:54 12/30/17 21:48 Melatonin PO 5 mg HS PRN Administration INSOMNIA Nicotine 14 mg 12/23/17 13:39 12/30/17 10:23 Nicoderm Patch - TD 14 mg DAILY PRN Administration WITHDRAWAL(CONT SUBST) Nicotine Polacrilex 2 mg 12/23/17 13:39 12/23/17 18:08 Nicorette Gum - BUC 2 mg Q2H PRN Administration NICOTINE REPLACEMENT RX Multivit/Folic Acid/Iron 1 tab 12/24/17 10:00 12/31/17 09:50 Vitamins (Sjr) - PO 1 tab DAILY TE Administration Pseudoephedrine/Triprolidine 1 combo 12/23/17 13:39 Actifed - PO TID PRN NASAL CONGESTION Thiamine HCl 100 mg 12/23/17 22:00 12/30/17 21:47 Vitamin B1 - PO 100 mg HS TE Administration Medication(s) Change(s): No. Current Side Effect: No Lab tests ordered: No Lab tests reviewed: Yes Provider note:: Patient completed rehab on 12/31/17. He has met his treatment goals and is able to identify behaviors that contribute to relapsing. Through participation of this program patient has learned the importance of changing his behaviors and the need for more structure in his life. Pt. will continue to address his issues at the [facility] outpatient program. A prescription of 30 tablets of vistaril 50mg will be sent to patient's pharmacy at [facility], [address] [place] [address]. Pt is stable for discharge on 12/31/17. Total face to face time:: 35 Mental Status Exam - Mental Status Exam Alert and Oriented to: Time, Place, Person Cognitive Function: Good Patient Appearance: Well Groomed Mood: Hopeful Affect: Appropriate Patient Behavior: Appropriate, Cooperative Speech Pattern: Clear, Appropriate Voice Loudness: Normal Thought Process: Intact, Goal Oriented Thought Disorder: Not Present Hallucinations: Denies Suicidal Ideation: Denies Homicidal Ideation: Denies Insight/Judgement: Good Sleep: Well Appetite: Good Muscle strength/Tone: Normal Gait/Station: Normal Psychiatric Treatment Plan - Problem List (1) Alcohol dependence Current Visit: Yes (2) Alcohol-induced mood disorder Current Visit: Yes (3) History of total right hip replacement Current Visit: Yes Comment: right hip 2016 left hip 2017 (4) Nicotine dependence Current Visit: Yes Qualifiers: Nicotine product type: cigarettes Substance use status: in withdrawal Qualified Code(s): F17.213 - Nicotine dependence, cigarettes, with withdrawal (5) Substance-induced sleep disorder Current Visit: Yes
== END 2017-12-31 10:30 | disposition home or self-care (01) | DRG 772 ==
LOC: YASAS 12:30 → Y5N 12:31
PROVIDERS: ADMIT Psychiatry & Neurology Psychiatry; ATTEND Psychiatry & Neurology Psychiatry
PROC: HZ42ZZZ Group Counseling for Substance Abuse Treatment, Cognitive-Behavioral (ICD-10-PCS; principal; 2017-12-23)
DX: F10.20 Alcohol dependence, uncomplicated (principal); F17.213 Nicotine dependence, cigarettes, with withdrawal; F10.24 Alcohol dependence with alcohol-induced mood disorder; F19.282 Other psychoactive substance dependence with psychoactive substance-induced sleep disorder; J45.909 Unspecified asthma, uncomplicated; E11.9 Type 2 diabetes mellitus without complications; Z96.643 Presence of artificial hip joint, bilateral; Z88.0 Allergy status to penicillin; Z91.013 Allergy to seafood

== ENCOUNTER 2022-01-23 21:58 | Observation (INO) | payer OTHER ==
[2022-01-23 22:09] VITALS: BMI 31.9
[2022-01-23] MEDS ORDERED: ALBUTEROL SO4 2.5/IPRATROPIUM 0.5 INH SOL 3 ML VIAL.NEB. NEB ONE ×3 (22:09→23:15)
[2022-01-23] MEDS ORDERED: MAGNESIUM SULF 50% (8.12 MEQ/2 ML-1 GM VIAL) IVPB ONE (23:07)
[2022-01-23] MEDS ORDERED: DEXAMETHASONE SOD PHOSPHATE 10 MG/1 ML VIAL IVPUSH ONE (23:07)
[2022-01-23] MEDS ORDERED: KETOROLAC TROMETHAMINE 15 MG/ML VIAL IVPUSH ONE (23:07)
[2022-01-23] MEDS ORDERED: MAGNESIUM SULFATE IN WATER 2 GM/50 ML IVPB IVPB ONE (23:15)
[2022-01-23] MEDS ORDERED: DEXAMETHASONE SOD PHOSPHATE 10 MG/1 ML VIAL ONE (23:15)
[2022-01-23] MEDS ORDERED: KETOROLAC TROMETHAMINE 30 MG/1 ML VIAL ONE (23:15)
[2022-01-23 23:58] LABS: BASO % 0.8 % (0-2.0); EOS % 8.6 % (0-4.5); HEMATOCRIT 48.7 % (35.4-49); HEMOGLOBIN 16.6 GM/dL (11.7-16.9); LYMPH % 16.2 % (8-40); MCH 30.3 pg (25.7-33.7); MCHC 34.2 g/dl (32.0-35.9); MEAN CELL VOLUME 88.8 fl (80-96); MONO % 8.5 % (3.8-10.2); NEUT % 65.9 % (42.8-82.8); PLATELET COUNT 343 10^3/uL (134-434); RBC 5.48 M/mm3 (4.00-5.60); RDW 14.3 % (11.9-15.9); WHITE BLOOD COUNT 12.8 K/mm3 (4.0-10.0)
[2022-01-24 00:16] LABS: ALBUMIN 4.4 g/dl (3.4-5.0)
[2022-01-24 00:26] LABS: BILIRUBIN,TOTAL 0.5 mg/dL (0.2-1); BLOOD UREA NITROGEN 14.4 mg/dL (7-18); CALCIUM 9.7 mg/dL (8.5-10.1); CREATININE 1.2 mg/dL (0.55-1.3); TOT PROT 8.4 g/dl (6.4-8.2)
[2022-01-24] MEDS ORDERED: ACETAMINOPHEN 1000 MG/100 ML BAG IVPB ONE (00:43)
[2022-01-24] MEDS ORDERED: ACETAMINOPHEN INJECTION 100 ML IVPB ONE (00:59)
[2022-01-24] MEDS ORDERED: KETOROLAC TROMETHAMINE 15 MG/ML VIAL IVPUSH PRN (02:03)
[2022-01-24] MEDS ORDERED: LIDOCAINE 5% TOPICAL PATCH TP ONE (02:03)
[2022-01-24] MEDS ORDERED: diphenhydrAMINE HCL 25 MG CAPSULE (FP) PO ONE (03:54)
[2022-01-24] MEDS: diphenhydrAMINE HCL 25 MG CAPSULE (FP) PO PRN (03:56)
[2022-01-24] MEDS ORDERED: ACETAMINOPHEN 325 MG TABLET (FP) PO PRN (04:12)
[2022-01-24] MEDS ORDERED: ALBUTEROL SO4 2.5/IPRATROPIUM 0.5 INH SOL 3 ML VIAL.NEB. NEB PRN (04:31)
[2022-01-24 06:17] LABS: HEMOGLOBIN 15.4 GM/dL (11.7-16.9); MCH 29.5 pg (25.7-33.7); MCHC 32.8 g/dl (32.0-35.9); MEAN CELL VOLUME 89.8 fl (80-96); MEAN PLT VOLUME 9.3 fl (7.5-11.1); PLATELET COUNT 324 10^3/uL (134-434); RBC 5.24 M/mm3 (4.00-5.60); RDW 14.2 % (11.9-15.9); WHITE BLOOD COUNT 11.7 K/mm3 (4.0-10.0)
[2022-01-24 06:37] LABS: CALCIUM 9.6 mg/dL (8.5-10.1)
[2022-01-24 06:38] LABS: ALBUMIN 4.1 g/dl (3.4-5.0); BLOOD UREA NITROGEN 12.6 mg/dL (7-18); MAGNESIUM 2.5 mg/dL (1.8-2.4)
[2022-01-24 06:41] LABS: PHOSPHOROUS 2.4 mg/dL (2.5-4.9)
[2022-01-24 06:43] LABS: BILIRUBIN,TOTAL 0.6 mg/dL (0.2-1)
[2022-01-24] MEDS ORDERED: methylPREDNISolone NA SUCC 40 MG/1 ML VIAL IVPUSH SCH (10:00)
[2022-01-24] MEDS: ENOXAPARIN NA (PORCINE) 40 MG/0.4 ML DISP.SYRIN SQ SCH (10:15)
[2022-01-24] MEDS: MONTELUKAST NA 10 MG TABLET PO SCH (10:15)
[2022-01-24] MEDS: BUDESONIDE/FORMETEROL FUMARATE 160/4.5 mcg INHALER IH SCH (12:05)
[2022-01-24] MEDS ORDERED: ALBUTEROL SO4 0.5 % INH SOLN 2.5 MG/0.5 ML VIAL.NEB. NEB PRN (12:19)
[2022-01-24] MEDS ORDERED: ALBUTEROL SO4 2.5/IPRATROPIUM 0.5 INH SOL 3 ML VIAL.NEB. NEB SCH (12:30)
[2022-01-24] MEDS: methylPREDNISolone NA SUCC 40 MG/1 ML VIAL IVPUSH SCH ×3 (15:30→21:04)
[2022-01-24] MEDS: ALBUTEROL SO4 2.5/IPRATROPIUM 0.5 INH SOL 3 ML VIAL.NEB. NEB SCH ×2 (15:38→20:00)
[2022-01-24] MEDS: MELATONIN 5 MG TABLETS PO SCH (21:04)
[2022-01-24] MEDS: LIDOCAINE PATCH REMOVAL MC SCH (21:08)
[2022-01-24] MEDS ORDERED: MELATONIN 5 MG TABLETS PO SCH (22:00)
[2022-01-25] MEDS: diphenhydrAMINE HCL 25 MG CAPSULE (FP) PO PRN ×2 (00:24→21:04)
[2022-01-25] MEDS: ALBUTEROL SO4 0.5 % INH SOLN 2.5 MG/0.5 ML VIAL.NEB. NEB PRN ×2 (00:26→05:28)
[2022-01-25] MEDS: methylPREDNISolone NA SUCC 40 MG/1 ML VIAL IVPUSH SCH ×4 (02:08→21:02)
[2022-01-25] MEDS: ALBUTEROL SO4 2.5/IPRATROPIUM 0.5 INH SOL 3 ML VIAL.NEB. NEB SCH ×4 (07:20→20:06)
[2022-01-25] MEDS: ENOXAPARIN NA (PORCINE) 40 MG/0.4 ML DISP.SYRIN SQ SCH (09:07)
[2022-01-25] MEDS: BUDESONIDE/FORMETEROL FUMARATE 160/4.5 mcg INHALER IH SCH (09:08)
[2022-01-25] MEDS: MONTELUKAST NA 10 MG TABLET PO SCH (09:08)
[2022-01-25] MEDS ORDERED: FAMOTIDINE 20 MG TABLET PO ONE (18:12)
[2022-01-25] MEDS ORDERED: guaiFENesin 200 MG/10 ML 10 ML UNIT-DOSE CUPS PO ONE (20:49)
[2022-01-25] MEDS: MELATONIN 5 MG TABLETS PO SCH (21:02)
[2022-01-25] MEDS: LIDOCAINE PATCH REMOVAL MC SCH (21:59)
[2022-01-26] MEDS: ALBUTEROL SO4 0.5 % INH SOLN 2.5 MG/0.5 ML VIAL.NEB. NEB PRN ×2 (01:31→04:50)
[2022-01-26] MEDS: methylPREDNISolone NA SUCC 40 MG/1 ML VIAL IVPUSH SCH ×2 (05:43→14:07)
[2022-01-26] MEDS: ALBUTEROL SO4 2.5/IPRATROPIUM 0.5 INH SOL 3 ML VIAL.NEB. NEB SCH ×3 (08:40→16:40)
[2022-01-26 09:47] LABS: HEMATOCRIT 45.2 % (35.4-49); HEMOGLOBIN 15.4 GM/dL (11.7-16.9); MCH 30.1 pg (25.7-33.7); MEAN CELL VOLUME 88.4 fl (80-96); MEAN PLT VOLUME 9.1 fl (7.5-11.1); PLATELET COUNT 330 10^3/uL (134-434); RBC 5.12 M/mm3 (4.00-5.60); RDW 14.5 % (11.9-15.9); WHITE BLOOD COUNT 21.8 K/mm3 (4.0-10.0)
[2022-01-26 10:12] LABS: CALCIUM 9.5 mg/dL (8.5-10.1)
[2022-01-26 10:14] LABS: BLOOD UREA NITROGEN 23.7 mg/dL (7-18)
[2022-01-26 10:16] LABS: CREATININE 1.2 mg/dL (0.55-1.3)
[2022-01-26] MEDS: MONTELUKAST NA 10 MG TABLET PO SCH (11:46)
[2022-01-26] MEDS: BUDESONIDE/FORMETEROL FUMARATE 160/4.5 mcg INHALER IH SCH (11:46)
[2022-01-26] MEDS: ENOXAPARIN NA (PORCINE) 40 MG/0.4 ML DISP.SYRIN SQ SCH (11:46)
[2022-01-26 15:37] VITALS: BP 140/89; PULSE 78; RESP 20; TEMP 98.6
== END 2022-01-26 17:46 | disposition home or self-care (01) ==
LOC: JER 21:58 → JERBED 01-24 01:21 → J8W 01-24 07:41
PROVIDERS: ADMIT Hospitalist; ATTEND Internal Medicine
PROC: 3E0F7GC Introduction of Other Therapeutic Substance into Respiratory Tract, Via Natural or Artificial Opening (ICD-10-PCS; principal; 2022-01-24)
PROC: 3E033NZ Introduction of Analgesics, Hypnotics, Sedatives into Peripheral Vein, Percutaneous Approach (ICD-10-PCS; 2022-01-24)
PROC: 3E033GC Introduction of Other Therapeutic Substance into Peripheral Vein, Percutaneous Approach (ICD-10-PCS; 2022-01-24)
PROC: 3E0333Z Introduction of Anti-inflammatory into Peripheral Vein, Percutaneous Approach (ICD-10-PCS; 2022-01-24)
PROC: 3E033GC Introduction of Other Therapeutic Substance into Peripheral Vein, Percutaneous Approach (ICD-10-PCS; 2022-01-24)
DX: J45.41 Moderate persistent asthma with (acute) exacerbation (principal); R07.89 Other chest pain; R06.2 Wheezing; Z88.0 Allergy status to penicillin; Z91.013 Allergy to seafood; E66.8 Other obesity; Z68.31 Body mass index [BMI] 31.0-31.9, adult
CPT/HCPCS: 0241U-QW; 36415; 71045-TC-FY; 80048; 80053; 83735; 84100; 85025; 85027; 93005; 93010; 94150; 94640; 94761; 96374; 96375; 96376; 99285-25; G0378; J1100

== ENCOUNTER 2022-09-22 11:48 | Observation (INO) | payer OTHER ==
[2022-09-22 12:17] VITALS: BMI 31.8
[2022-09-22] MEDS ORDERED: MAGNESIUM SULF 50% (8.12 MEQ/2 ML-1 GM VIAL) IVPB ONE (13:18)
[2022-09-22] MEDS ORDERED: methylPREDNISolone NA SUCC 125 MG/2 ML VIAL IVPUSH ONE (13:18)
[2022-09-22] MEDS ORDERED: ALBUTEROL SO4 2.5/IPRATROPIUM 0.5 INH SOL 3 ML VIAL.NEB. NEB ONE ×3 (13:28→15:28)
[2022-09-22] MEDS ORDERED: methylPREDNISolone NA SUCC 125 MG/2 ML VIAL ONE (13:28)
[2022-09-22] MEDS ORDERED: MAGNESIUM SULFATE IN WATER 2 GM/50 ML IVPB IVPB ONE (13:28)
[2022-09-22] MEDS: ALBUTEROL SO4 2.5/IPRATROPIUM 0.5 INH SOL 3 ML VIAL.NEB. NEB SCH ×3 (13:35→13:56)
[2022-09-22 14:12] LABS: BASO % 1.1 % (0-2.0); EOS % 12.5 % (0-4.5); HEMATOCRIT 44.1 % (35.4-49); LYMPH % 19.7 % (8-40); MCH 29.4 pg (25.7-33.7); MEAN CELL VOLUME 86.4 fl (80-96); MEAN PLT VOLUME 9.6 fl (7.5-11.1); MONO % 6.3 % (3.8-10.2); NEUT % 60.4 % (42.8-82.8); PLATELET COUNT 326 10^3/uL (134-434); RBC 5.11 M/mm3 (4.00-5.60); RDW 14.4 % (11.9-15.9); WHITE BLOOD COUNT 10.2 K/mm3 (4.0-10.0)
[2022-09-22 14:14] LABS: VENOUS BASE EXCESS -3.1 mmol/L (-2-2); VENOUS PCO2 42.5 mmHg (38-52); VENOUS PH 7.342 (7.310-7.410)
[2022-09-22 14:18] LABS: INR 1.08 (0.83-1.09); PROTHROMBIN TIME (PATIENT) 12.5 SEC (9.7-13.0)
[2022-09-22 14:20] LABS: ACTIVATED PTT 33.6 SECONDS (25.2-36.5)
[2022-09-22] MEDS ORDERED: FAMOTIDINE 20 MG/50 ML IVPB 20 MG/50 ML MG IVPB ONE ×2 (14:34→14:36)
[2022-09-22] MEDS ORDERED: MAG HYDROX/AL HYDROX/SIMETH 30 ML UNIT-DOSE CUP PO ONE (14:34)
[2022-09-22 14:35] LABS: CALCIUM 9.5 mg/dL (8.5-10.1)
[2022-09-22 14:36] LABS: BLOOD UREA NITROGEN 13.6 mg/dL (7-18)
[2022-09-22] MEDS ORDERED: MAG HYDROX/AL HYDROX/SIMETH 30 ML UNIT-DOSE CUP ONE (14:36)
[2022-09-22 14:41] LABS: BILIRUBIN,TOTAL 0.4 mg/dL (0.2-1); TOT PROT 7.6 g/dl (6.4-8.2)
[2022-09-22] MEDS ORDERED: KETOROLAC TROMETHAMINE 15 MG/ML VIAL IVPUSH ONE (17:15)
[2022-09-22] MEDS ORDERED: NICOTINE 7 MG/24 HOURS TOPICAL PATCH TD ONE (17:31)
[2022-09-22] MEDS ORDERED: KETOROLAC TROMETHAMINE 15 MG/ML VIAL ONE (17:31)
[2022-09-22] MEDS ORDERED: ALBUTEROL SO4 0.083% IH SOL 2.5 MG/3 ML VIAL.NEB. NEB ONE (17:31)
[2022-09-22] MEDS ORDERED: AZITHROMYCIN IVPB 500 MG/250 ML BAG IVPB ONE (17:31)
[2022-09-22] MEDS: NICOTINE 7 MG/24 HOURS TOPICAL PATCH TD SCH (17:46)
[2022-09-22] MEDS: AZITHROMYCIN IVPB 500 MG/250 ML BAG IVPB SCH (17:46)
[2022-09-22] MEDS: ALBUTEROL SO4 0.083% IH SOL 2.5 MG/3 ML VIAL.NEB. NEB PRN (17:46)
[2022-09-22] MEDS ORDERED: ALBUTEROL SO4 0.083% IH SOL 2.5 MG/3 ML VIAL.NEB. NEB SCH (20:00)
[2022-09-22] MEDS: methylPREDNISolone NA SUCC 40 MG/1 ML VIAL IVPUSH SCH (21:01)
[2022-09-22] MEDS: ACETAMINOPHEN 325 MG TABLET (FP) PO PRN (21:02)
[2022-09-22 21:58] VITALS: RESP 18
[2022-09-22] MEDS ORDERED: MELATONIN 5 MG TABLETS PO SCH (22:00)
[2022-09-23] MEDS: ALBUTEROL SO4 0.083% IH SOL 2.5 MG/3 ML VIAL.NEB. NEB PRN ×3 (03:18→13:35)
[2022-09-23] MEDS: ACETAMINOPHEN 325 MG TABLET (FP) PO PRN (06:07)
[2022-09-23] MEDS: methylPREDNISolone NA SUCC 40 MG/1 ML VIAL IVPUSH SCH (09:47)
[2022-09-23] MEDS: AZITHROMYCIN IVPB 500 MG/250 ML BAG IVPB SCH (09:47)
[2022-09-23] MEDS ORDERED: LORATADINE 10 MG TABLET PO SCH (10:00)
[2022-09-23] MEDS ORDERED: MONTELUKAST NA 10 MG TABLET PO SCH (10:00)
[2022-09-23] MEDS ORDERED: BUDESONIDE/FORMETEROL FUMARATE 160/4.5 mcg INHALER IH SCH (10:00)
[2022-09-23] MEDS: NICOTINE 7 MG/24 HOURS TOPICAL PATCH TD SCH (10:19)
[2022-09-23 15:37] VITALS: BP 148/95; PULSE 105; TEMP 98.4
== END 2022-09-23 15:41 | disposition left against medical advice (07) ==
LOC: JER 11:48 → JERBED 16:38 → J5S 20:00
PROVIDERS: ADMIT Internal Medicine
PROC: 3E03329 Introduction of Other Anti-infective into Peripheral Vein, Percutaneous Approach (ICD-10-PCS; principal; 2022-09-22)
PROC: 3E0333Z Introduction of Anti-inflammatory into Peripheral Vein, Percutaneous Approach (ICD-10-PCS; 2022-09-22)
PROC: 3E033GC Introduction of Other Therapeutic Substance into Peripheral Vein, Percutaneous Approach (ICD-10-PCS; 2022-09-22)
PROC: 3E0F7SF Introduction of Other Gas into Respiratory Tract, Via Natural or Artificial Opening (ICD-10-PCS; 2022-09-22)
DX: J45.901 Unspecified asthma with (acute) exacerbation (principal); J40 Bronchitis, not specified as acute or chronic; F17.213 Nicotine dependence, cigarettes, with withdrawal; R07.81 Pleurodynia; Z86.39 Personal history of other endocrine, nutritional and metabolic disease; Z96.643 Presence of artificial hip joint, bilateral; Z88.0 Allergy status to penicillin; Z91.013 Allergy to seafood
CPT/HCPCS: 0241U-QW; 36415; 71045-TC-FY; 80053; 82803; 84484; 85025; 85610; 85730; 93005; 93010; 94640; 96365; 96375; 99285-25; G0378